=== PATIENT | female | born 2000 | race Caucasian/White ===

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

== ENCOUNTER 2023-06-26 04:17 | Inpatient (IN) | payer MEDICAID, OTHER, SELFPAY ==
[~2023-06-26] VITALS: Ht 172.7 cm; Wt 60.6 kg
[2023-06-26] MEDS ORDERED: NO HOME MEDS (04:47)
[2023-06-26 04:54] LABS: URINE HCG NEGATIVE (NEG)
[2023-06-26 05:07] LABS: URINE AMPHETAMINE SCREEN NEGATIVE (Neg); URINE BARBITUATE SCREEN NEGATIVE (Neg); URINE BENZODIAZEPINES SCREEN NEGATIVE (Neg); URINE CANNABINOID SCREEN NEGATIVE (Neg); URINE COCAINE SCREEN POSITIVE (Neg); URINE METHADONE SCREEN NEGATIVE (Neg); URINE OPIATE SCREEN NEGATIVE (Neg); URINE PHENCYCLIDINE SCREEN NEGATIVE (Neg)
[2023-06-26 05:11] LABS: BASOPHILS % (AUTO) 0.1 % (0-1); EOSINOPHILS % (AUTO) 0.4 % (0-6); HEMATOCRIT 38.7 % (35.0-45.0); HEMOGLOBIN 13.2 g/dl (12.0-16.0); LYMPHOCYTES # (AUTO) 1.9 X10'3 (1.1-4.8); LYMPHOCYTES % (AUTO) 23.1 % (21-51); MEAN CORPUSCULAR HEMOGLOBIN 31.6 PG (27.0-31.0); MEAN CORPUSCULAR HGB CONC 34.2 g/dL (33.0-36.5); MEAN CORPUSCULAR VOLUME 92.4 FL (78-98); MEAN PLATELET VOLUME 7.2 FL (7.4-10.4); MONOCYTES # (AUTO) 0.5 X10'3 (0-0.9); MONOCYTES % (AUTO) 6.1 % (2-12); NEUTROPHILS # (AUTO) 5.8 X10'3 (1.8-7.7); NEUTROPHILS % (AUTO) 70.3 % (42-75); PLATELET COUNT 340 X10'3 (140-440); RED BLOOD COUNT 4.19 X10'6 (4.20-5.60); RED CELL DISTRIBUTION WIDTH 13.7 % (11.5-14.5); WHITE BLOOD COUNT 8.2 X10'3 (4.5-11.0)
[2023-06-26 05:13] LABS: ALANINE AMINOTRANSFERASE 35 U/L (12-78); ALBUMIN/GLOBULIN RATIO 1.1 (1.1-1.5); ALKALINE PHOSPHATASE 90 IU/L (46-116); ANION GAP 7 (8-16); ASPARTATE AMINO TRANSFERASE 18 U/L (10-37); BILIRUBIN,TOTAL 0.5 MG/DL (0.1-1.0); BLOOD UREA NITROGEN 9 MG/DL (7-18); BUN/CREATININE RATIO 11.1 (10.0-20.0); CALCIUM 9.1 MG/DL (8.5-10.1); CHLORIDE 105 MMOL/L (99-107); CREATININE 0.81 MG/DL (0.40-0.90); GLUCOSE 106 MG/DL (70-104); POTASSIUM 3.7 MMOL/L (3.5-5.1); SODIUM 138 MMOL/L (135-145); TOTAL CARBON DIOXIDE 26.4 MMOL/L (24-32); TOTAL PROTEIN 7.5 G/DL (6.4-8.2); eCRCL 107 ML/MIN; eGFR 89 ML/MIN
[2023-06-26 05:15] LABS: BILIRUBIN,URINE NEGATIVE (Neg); CLARITY,URINE SLIGHTLY CLOUDY (Clear); COLOR,URINE STRAW (Yellow); GLUCOSE, URINE NEGATIVE (Neg); KETONES,URINE NEGATIVE (Neg); LEUKOCYTE ESTERASE ,URINE TRACE (Neg); NITRITES, URINE NEGATIVE (Neg); OCCULT BLOOD,URINE NEGATIVE (Neg); PROTEIN,URINE NEGATIVE (Neg); UROBILINOGEN,URINE 0.2 E.U/dL (0.2-1.0)
[2023-06-26 05:19] LABS: UA COLLECTION TYPE CLN CATCH MIDSTREAM
[2023-06-26 05:20] LABS: SQUAMOUS EPITHELIAL CELL,UR FEW /LPF (FEW)
[2023-06-26 05:22] LABS: BACTERIA,URINE 1+ /HPF (Neg); RBC,URINE 0-2 /HPF (0-2); WBC,URINE 0-4 /HPF (0-4)
[2023-06-26 05:23] LABS: ETHANOL 66 MG/DL (<10); THYROID STIMULATING HORMONE 1.92 ulU/ml (0.34-4.50)
[2023-06-26] MEDS ORDERED: mag hydrox/Alum hydrox/simeth 30ml oral suspension PO PRN (17:15)
[2023-06-26] MEDS ORDERED: magnesium hydroxide 30ml (MOM) UD suspension PO PRN (17:15)
[2023-06-26] MEDS ORDERED: loperamide 2mg capsule PO PRN (17:15)
[2023-06-26] MEDS ORDERED: acetaminophen 325mg tablet PO PRN ×2 (17:15)
[2023-06-26] MEDS: NICOTINE POLACRILEX 2 MG LOZENGE BC PRN ×2 (18:49→21:59)
[2023-06-26] MEDS ORDERED: LORazepam 1 MG tablet PO PRN (18:55)
[2023-06-26 19:17] VITALS: RESP 16; O2SAT 100
[2023-06-26 19:19] VITALS: BP 133/65; PULSE 90; RESP 16; TEMP 97.8; O2SAT 100
[2023-06-26] MEDS ORDERED: traZODone 50mg tablet PO SCH (21:00)
[2023-06-27 07:00] VITALS: RESP 14; O2SAT 98
[2023-06-27] MEDS: nicotine 21mg patch - 24 hr TD SCH (07:21)
[2023-06-27 08:00] VITALS: BP 107/61; PULSE 63; RESP 14; TEMP 98.2; O2SAT 98
[2023-06-27 09:54] LABS: CHOL/HDL RATIO 2.8 (0.00-4.99); CHOLESTEROL 171 MG/DL (0-200); HDL CHOLESTEROL 62 MG/DL (35-60); LDL CHOLESTEROL 87 MG/DL (50-100); TRIGLYCERIDES 129 MG/DL (20-135)
[2023-06-27] MEDS ORDERED: QUEtiapine 25mg tablet PO PRN (14:35)
[2023-06-27] MEDS ORDERED: venlafaxine XR 37.5mg cap (Q24H) PO ONE (14:35)
[2023-06-27] MEDS: NICOTINE POLACRILEX 2 MG LOZENGE BC PRN ×2 (16:49→20:59)
[2023-06-27] MEDS: ALPRAZolam 0.5mg tablet PO PRN (17:22)
[2023-06-27 19:00] VITALS: RESP 16; O2SAT 98
[2023-06-27 20:00] VITALS: BP 112/69; PULSE 72; RESP 16; TEMP 97.9; O2SAT 98
[2023-06-27] MEDS: prazosin 1mg capsule PO SCH (20:45)
[2023-06-27] MEDS: QUEtiapine 25mg tablet PO SCH (20:46)
[2023-06-28 07:00] VITALS: RESP 18; O2SAT 98
[2023-06-28] MEDS: venlafaxine XR 75mg capsule (Q24H) PO SCH (07:17)
[2023-06-28] MEDS: nicotine 21mg patch - 24 hr TD SCH (07:18)
[2023-06-28 08:00] VITALS: BP 79/52; PULSE 75; RESP 18; TEMP 97.7; O2SAT 98
[2023-06-28 19:00] VITALS: RESP 18; O2SAT 96
[2023-06-28] MEDS: NICOTINE POLACRILEX 2 MG LOZENGE BC PRN (19:06)
[2023-06-28 20:00] VITALS: BP 137/79; PULSE 93; RESP 18; TEMP 97.7; O2SAT 96
[2023-06-28] MEDS: QUEtiapine 25mg tablet PO SCH (20:32)
[2023-06-28] MEDS: prazosin 1mg capsule PO SCH (20:32)
[2023-06-28] MEDS: ALPRAZolam 0.5mg tablet PO PRN (20:33)
[2023-06-29 07:00] VITALS: RESP 18; O2SAT 97
[2023-06-29 08:00] VITALS: BP 110/57; PULSE 74; RESP 18; TEMP 97.9; O2SAT 97
[2023-06-29] MEDS: nicotine 21mg patch - 24 hr TD SCH (08:26)
[2023-06-29] MEDS: venlafaxine XR 75mg capsule (Q24H) PO SCH (08:26)
[2023-06-29] MEDS: ALPRAZolam 0.5mg tablet PO PRN (14:02)
[2023-06-29] MEDS: NICOTINE POLACRILEX 2 MG LOZENGE BC PRN ×2 (14:43→20:27)
[2023-06-29 19:30] VITALS: BP 125/78; PULSE 97; RESP 16; TEMP 98.9; O2SAT 99
[2023-06-29] MEDS: prazosin 1mg capsule PO SCH (20:27)
[2023-06-29] MEDS: QUEtiapine 25mg tablet PO SCH (20:27)
[2023-06-30 07:00] VITALS: RESP 16; O2SAT 95
[2023-06-30 08:00] VITALS: BP 109/69; PULSE 74; RESP 16; TEMP 98.4; O2SAT 98
[2023-06-30] MEDS: venlafaxine XR 37.5mg cap (Q24H) PO SCH (09:07)
[2023-06-30] MEDS: nicotine 21mg patch - 24 hr TD SCH (09:07)
[2023-06-30] MEDS: venlafaxine XR 75mg capsule (Q24H) PO SCH (09:07)
[2023-06-30] MEDS: NICOTINE POLACRILEX 2 MG LOZENGE BC PRN ×3 (12:34→19:05)
[2023-06-30] MEDS: ALPRAZolam 0.5mg tablet PO PRN (12:34)
[2023-06-30 19:30] VITALS: BP 123/53; PULSE 96; RESP 14; TEMP 98.3; O2SAT 98
[2023-06-30] MEDS: prazosin 1mg capsule PO SCH (20:19)
[2023-06-30] MEDS: QUEtiapine 25mg tablet PO SCH (20:27)
[2023-07-01 07:00] VITALS: RESP 16; O2SAT 95
[2023-07-01 08:00] VITALS: BP 97/62; PULSE 67; RESP 16; TEMP 98.3; O2SAT 98
[2023-07-01] MEDS: venlafaxine XR 37.5mg cap (Q24H) PO SCH (08:14)
[2023-07-01] MEDS: venlafaxine XR 75mg capsule (Q24H) PO SCH (08:14)
[2023-07-01] MEDS: nicotine 21mg patch - 24 hr TD SCH (08:14)
[2023-07-01] MEDS: NICOTINE POLACRILEX 2 MG LOZENGE BC PRN ×3 (11:06→20:27)
[2023-07-01] MEDS ORDERED: venlafaxine XR 37.5mg cap (Q24H) PO ONE (13:00)
[2023-07-01] MEDS ORDERED: naltrexone 50mg tablet PO SCH (17:30)
[2023-07-01 19:00] VITALS: BP 110/68; PULSE 84; RESP 17; TEMP 98.4; O2SAT 100
[2023-07-01] MEDS: QUEtiapine 25mg tablet PO SCH (20:21)
[2023-07-01] MEDS: prazosin 1mg capsule PO SCH (20:21)
[2023-07-02 07:00] VITALS: RESP 16; O2SAT 100
[2023-07-02 08:00] VITALS: BP 115/59; PULSE 72; RESP 16; TEMP 97.7; O2SAT 100
[2023-07-02] MEDS ORDERED: venlafaxine XR 75mg capsule (Q24H) PO SCH (08:00)
[2023-07-02] MEDS: nicotine 21mg patch - 24 hr TD SCH (08:11)
[2023-07-02] MEDS: NICOTINE POLACRILEX 2 MG LOZENGE BC PRN ×2 (09:31→13:06)
[2023-07-02] MEDS ORDERED: QUET25TA36 PO (13:49)
[2023-07-02] MEDS ORDERED: VENL150T3 PO (13:49)
[2023-07-02] MEDS ORDERED: NICO-687 TD (13:49)
[2023-07-02] MEDS ORDERED: NALT50TA PO (13:49)
[2023-07-02] MEDS ORDERED: PRAZ1CAP5 PO (13:49)
== END 2023-07-02 15:17 | disposition home or self-care (01) | DRG 751 ==
LOC: ER 04:17 → ED HOLD 12:25 → ADULT MH 16:23
PROVIDERS: ADMIT Psychiatry & Neurology Psychiatry; ATTEND Psychiatry & Neurology Psychiatry
PROC: GZHZZZZ Group Psychotherapy (ICD-10-PCS; principal; 2023-06-26)
PROC: GZ51ZZZ Individual Psychotherapy, Behavioral (ICD-10-PCS; 2023-06-26)
DX: F33.2 Major depressive disorder, recurrent severe without psychotic features (principal); R45.851 Suicidal ideations; F10.10 Alcohol abuse, uncomplicated; F14.10 Cocaine abuse, uncomplicated; F17.290 Nicotine dependence, other tobacco product, uncomplicated; F42.9 Obsessive-compulsive disorder, unspecified; F43.10 Post-traumatic stress disorder, unspecified; F90.9 Attention-deficit hyperactivity disorder, unspecified type; Z63.72 Alcoholism and drug addiction in family; Z79.899 Other long term (current) drug therapy; Z81.3 Family history of other psychoactive substance abuse and dependence; Z81.8 Family history of other mental and behavioral disorders; Z83.3 Family history of diabetes mellitus
CPT/HCPCS: 36415; 80053; 80061; 80305; 80320; 81001; 81025; 82948; 84443; 85025; 87081; 87811; 99285

== ENCOUNTER 2023-07-12 13:31 | Inpatient (IN) | payer MEDICAID ==
[~2023-07-12] VITALS: Ht 172.7 cm; Wt 58.6 kg
[~2023-07-12 13:31] MED LIST: NALT50TA PO; NICO-687 TD; PRAZ1CAP5 PO; QUET25TA36 PO; VENL150T3 PO
[2023-07-12 14:26] LABS: BASOPHILS % (AUTO) 0.1 % (0-1); EOSINOPHILS % (AUTO) 0.1 % (0-6); HEMATOCRIT 42.1 % (35.0-45.0); HEMOGLOBIN 14.5 g/dl (12.0-16.0); LYMPHOCYTES # (AUTO) 1.4 X10'3 (1.1-4.8); LYMPHOCYTES % (AUTO) 15.1 % (21-51); MEAN CORPUSCULAR HEMOGLOBIN 31.6 PG (27.0-31.0); MEAN CORPUSCULAR HGB CONC 34.4 g/dL (33.0-36.5); MEAN CORPUSCULAR VOLUME 91.8 FL (78-98); MONOCYTES # (AUTO) 0.9 X10'3 (0-0.9); MONOCYTES % (AUTO) 9.9 % (2-12); NEUTROPHILS % (AUTO) 74.8 % (42-75); PLATELET COUNT 345 X10'3 (140-440); RED BLOOD COUNT 4.58 X10'6 (4.20-5.60); RED CELL DISTRIBUTION WIDTH 13.5 % (11.5-14.5); WHITE BLOOD COUNT 9.3 X10'3 (4.5-11.0)
[2023-07-12 14:36] LABS: BILIRUBIN,URINE NEGATIVE (Neg); CLARITY,URINE CLOUDY (Clear); COLOR,URINE YELLOW (Yellow); GLUCOSE, URINE NEGATIVE (Neg); KETONES,URINE NEGATIVE (Neg); LEUKOCYTE ESTERASE ,URINE MODERATE (Neg); NITRITES, URINE POSITIVE (Neg); OCCULT BLOOD,URINE TRACE-INTACT (Neg); PROTEIN,URINE NEGATIVE (Neg); URINE HCG NEGATIVE (NEG); UROBILINOGEN,URINE 0.2 E.U/dL (0.2-1.0)
[2023-07-12 14:41] LABS: ALANINE AMINOTRANSFERASE 31 U/L (12-78); ALBUMIN 4.2 G/DL (3.4-5.0); ALBUMIN/GLOBULIN RATIO 1.1 (1.1-1.5); ALKALINE PHOSPHATASE 125 IU/L (46-116); ANION GAP 7 (8-16); ASPARTATE AMINO TRANSFERASE 26 U/L (10-37); BILIRUBIN,TOTAL 0.9 MG/DL (0.1-1.0); BLOOD UREA NITROGEN 12 MG/DL (7-18); BUN/CREATININE RATIO 11.8 (10.0-20.0); CALCIUM 9.5 MG/DL (8.5-10.1); CHLORIDE 100 MMOL/L (99-107); CREATININE 1.02 MG/DL (0.40-0.90); ETHANOL < 10 MG/DL (<10); GLUCOSE 156 MG/DL (70-104); POTASSIUM 3.8 MMOL/L (3.5-5.1); SODIUM 138 MMOL/L (135-145); TOTAL CARBON DIOXIDE 31.4 MMOL/L (24-32); TOTAL PROTEIN 8.1 G/DL (6.4-8.2); eCRCL 82 ML/MIN; eGFR 68 ML/MIN
[2023-07-12 14:44] LABS: UA COLLECTION TYPE VOIDED
[2023-07-12 14:45] LABS: SQUAMOUS EPITHELIAL CELL,UR MODERATE /LPF (FEW)
[2023-07-12 14:46] LABS: BACTERIA,URINE 4+ /HPF (Neg); WBC,URINE TNTC /HPF (0-4)
[2023-07-12 14:47] LABS: TRANSITIONAL EPI CELLS,URINE MODERATE /HPF
[2023-07-12 14:48] LABS: AMORPHOUS URATES 2+
[2023-07-12 15:01] LABS: URINE AMPHETAMINE SCREEN NEGATIVE (Neg); URINE BARBITUATE SCREEN NEGATIVE (Neg); URINE BENZODIAZEPINES SCREEN NEGATIVE (Neg); URINE CANNABINOID SCREEN NEGATIVE (Neg); URINE COCAINE SCREEN POSITIVE (Neg); URINE METHADONE SCREEN NEGATIVE (Neg); URINE OPIATE SCREEN NEGATIVE (Neg); URINE PHENCYCLIDINE SCREEN NEGATIVE (Neg)
[2023-07-12 15:02] LABS: ACETAMINOPHEN < 2.0 UG/ML (10-30)
[2023-07-12] MEDS: cephalexin 250mg capsule PO SCH (20:30)
[2023-07-12] MEDS ORDERED: NICO-631 TOP (20:54)
[2023-07-12] MEDS ORDERED: NALT50TA PO (20:54)
[2023-07-12] MEDS ORDERED: PRAZ1CAP5 PO (20:54)
[2023-07-12] MEDS ORDERED: QUET50TA24 PO (20:54)
[2023-07-12] MEDS ORDERED: EFF37.5XRC PO (20:54)
[2023-07-12] MEDS ORDERED: prazosin 1mg capsule PO ONE (22:30)
[2023-07-12] MEDS ORDERED: QUEtiapine 25mg tablet PO ONE (22:30)
[2023-07-12] MEDS ORDERED: naltrexone 50mg tablet PO ONE (22:30)
[2023-07-13] MEDS ORDERED: nicotine 14mg patch - 24hr TD SCH (08:00)
[2023-07-13] MEDS: cephalexin 250mg capsule PO SCH ×4 (09:30→21:09)
[2023-07-13] MEDS: venlafaxine XR 75mg capsule (Q24H) PO SCH (09:40)
[2023-07-13] MEDS ORDERED: mag hydrox/Alum hydrox/simeth 30ml oral suspension PO PRN (13:40)
[2023-07-13] MEDS ORDERED: magnesium hydroxide 30ml (MOM) UD suspension PO PRN (13:40)
[2023-07-13] MEDS ORDERED: acetaminophen 325mg tablet PO PRN (13:40)
[2023-07-13] MEDS ORDERED: loperamide 2mg capsule PO PRN (13:40)
[2023-07-13 14:19] VITALS: RESP 16; O2SAT 98
[2023-07-13 19:30] VITALS: RESP 14; O2SAT 94
[2023-07-13 20:00] VITALS: BP 125/83; PULSE 58; RESP 14; TEMP 98.3; O2SAT 94
[2023-07-13] MEDS: naltrexone 50mg tablet PO SCH (21:09)
[2023-07-13] MEDS: prazosin 1mg capsule PO SCH (21:10)
[2023-07-13] MEDS: QUEtiapine 25mg tablet PO SCH (21:11)
[2023-07-14 07:30] VITALS: BP 109/50; PULSE 68; RESP 12; TEMP 98.3; O2SAT 100
[2023-07-14] MEDS: nicotine 21mg patch - 24 hr TD SCH (08:00)
[2023-07-14] MEDS: venlafaxine XR 75mg capsule (Q24H) PO SCH (08:31)
[2023-07-14] MEDS: cephalexin 250mg capsule PO SCH ×3 (08:31→17:04)
[2023-07-14] MEDS ORDERED: NICOTINE POLACRILEX 2 MG LOZENGE BC PRN (14:20)
[2023-07-14] MEDS: NICOTINE POLACRILEX 2 MG LOZENGE BC PRN ×2 (14:48→21:40)
[2023-07-14] MEDS ORDERED: benzocaine/menthol oral lozeng 1 EACH BOX MM PRN (14:55)
[2023-07-14 19:45] VITALS: RESP 20; O2SAT 100
[2023-07-14 20:00] VITALS: BP 128/87; PULSE 98; RESP 20; TEMP 97.7; O2SAT 100
[2023-07-14] MEDS: QUEtiapine 25mg tablet PO SCH (20:45)
[2023-07-14] MEDS: naltrexone 50mg tablet PO SCH (20:45)
[2023-07-14] MEDS: prazosin 1mg capsule PO SCH (20:45)
[2023-07-14 22:02] LABS: BILIRUBIN,URINE NEGATIVE (Neg); CLARITY,URINE CLEAR (Clear); COLOR,URINE YELLOW (Yellow); GLUCOSE, URINE NEGATIVE (Neg); KETONES,URINE NEGATIVE (Neg); LEUKOCYTE ESTERASE ,URINE NEGATIVE (Neg); NITRITES, URINE NEGATIVE (Neg); OCCULT BLOOD,URINE NEGATIVE (Neg); PROTEIN,URINE NEGATIVE (Neg); UROBILINOGEN,URINE 0.2 E.U/dL (0.2-1.0)
[2023-07-14 22:09] LABS: UA COLLECTION TYPE CLN CATCH MIDSTREAM
[2023-07-14] MEDS: HALLS - SOOTHE MENTHOL 1.8 MG cough drop LOZENGE MM PRN (22:31)
[2023-07-15 07:00] VITALS: RESP 16; O2SAT 96
[2023-07-15 08:00] VITALS: BP 98/52; PULSE 54; RESP 16; TEMP 97.9; O2SAT 96
[2023-07-15] MEDS: nicotine 21mg patch - 24 hr TD SCH (08:00)
[2023-07-15] MEDS: venlafaxine XR 75mg capsule (Q24H) PO SCH (08:29)
[2023-07-15 14:19] LABS: HBSAG SCREEN Negative (Negative); HEP B CORE AB, IGM Negative (Negative); HEP B CORE AB, TOT Negative (Negative)
[2023-07-15 19:56] VITALS: BP 120/81; PULSE 97; RESP 16; TEMP 98.6; O2SAT 95
[2023-07-15] MEDS: prazosin 1mg capsule PO SCH (20:53)
[2023-07-15] MEDS: naltrexone 50mg tablet PO SCH (20:53)
[2023-07-15] MEDS: QUEtiapine 25mg tablet PO SCH (20:55)
[2023-07-16 07:00] VITALS: RESP 16; O2SAT 97
[2023-07-16 08:00] VITALS: BP 95/54; PULSE 98; RESP 16; TEMP 97.8; O2SAT 97
[2023-07-16] MEDS: nicotine 21mg patch - 24 hr TD SCH (08:00)
[2023-07-16] MEDS: venlafaxine XR 75mg capsule (Q24H) PO SCH (08:29)
[2023-07-16] MEDS: HALLS - SOOTHE MENTHOL 1.8 MG cough drop LOZENGE MM PRN ×2 (13:47→20:22)
[2023-07-16] MEDS: acetaminophen 325mg tablet PO PRN (13:47)
[2023-07-16 19:00] VITALS: RESP 16; O2SAT 98
[2023-07-16 19:49] VITALS: BP 126/80; PULSE 118; RESP 16; TEMP 98.2; O2SAT 98
[2023-07-16] MEDS: pseudoephedrine 30mg tablet PO SCH (20:21)
[2023-07-16] MEDS: QUEtiapine 25mg tablet PO SCH (20:21)
[2023-07-16] MEDS: prazosin 1mg capsule PO SCH (20:21)
[2023-07-16] MEDS: naltrexone 50mg tablet PO SCH (20:22)
[2023-07-17] MEDS: pseudoephedrine 30mg tablet PO SCH ×4 (02:00→20:50)
[2023-07-17] MEDS: venlafaxine XR 75mg capsule (Q24H) PO SCH (07:07)
[2023-07-17] MEDS: cetirizine 10mg tablet PO SCH (07:07)
[2023-07-17] MEDS: acetaminophen 325mg tablet PO PRN ×2 (07:12→13:17)
[2023-07-17] MEDS: nicotine 21mg patch - 24 hr TD SCH (07:12)
[2023-07-17 08:00] VITALS: BP 111/73; PULSE 126; RESP 12; TEMP 98.8; O2SAT 97
[2023-07-17 19:00] VITALS: BP 116/67; PULSE 125; RESP 20; TEMP 98; O2SAT 100
[2023-07-17] MEDS: naltrexone 50mg tablet PO SCH (20:49)
[2023-07-17] MEDS: prazosin 1mg capsule PO SCH (20:49)
[2023-07-17] MEDS: QUEtiapine 25mg tablet PO SCH (20:50)
[2023-07-17] MEDS: HALLS - SOOTHE MENTHOL 1.8 MG cough drop LOZENGE MM PRN (20:56)
[2023-07-18] MEDS: pseudoephedrine 30mg tablet PO SCH ×4 (02:00→20:51)
[2023-07-18 08:00] VITALS: BP 110/66; PULSE 82; RESP 12; TEMP 98.5; O2SAT 97; O2SAT 98
[2023-07-18] MEDS: nicotine 21mg patch - 24 hr TD SCH (08:00)
[2023-07-18] MEDS: cetirizine 10mg tablet PO SCH (08:54)
[2023-07-18] MEDS: venlafaxine XR 75mg capsule (Q24H) PO SCH (08:54)
[2023-07-18] MEDS: acetaminophen 325mg tablet PO PRN ×2 (09:03→13:06)
[2023-07-18] MEDS: hydrOXYzine 25 MG tablet PO PRN (13:04)
[2023-07-18 19:00] VITALS: RESP 18; O2SAT 99
[2023-07-18 20:00] VITALS: BP 116/59; PULSE 105; RESP 18; TEMP 98.7; O2SAT 99
[2023-07-18] MEDS: prazosin 1mg capsule PO SCH (20:51)
[2023-07-18] MEDS: docusate sod 100mg capsule PO SCH (20:51)
[2023-07-18] MEDS: QUEtiapine 25mg tablet PO SCH (20:51)
[2023-07-18] MEDS: naltrexone 50mg tablet PO SCH (20:52)
[2023-07-18] MEDS: HALLS - SOOTHE MENTHOL 1.8 MG cough drop LOZENGE MM PRN (22:35)
[2023-07-19] MEDS: pseudoephedrine 30mg tablet PO SCH ×4 (02:50→20:32)
[2023-07-19 07:00] VITALS: RESP 14; O2SAT 98
[2023-07-19 08:00] VITALS: BP 106/63; PULSE 90; RESP 14; TEMP 97.8; O2SAT 98
[2023-07-19] MEDS: nicotine 21mg patch - 24 hr TD SCH (08:00)
[2023-07-19] MEDS: docusate sod 100mg capsule PO SCH ×2 (08:21→20:32)
[2023-07-19] MEDS: cetirizine 10mg tablet PO SCH (08:21)
[2023-07-19] MEDS: venlafaxine XR 75mg capsule (Q24H) PO SCH (08:21)
[2023-07-19] MEDS: acetaminophen 325mg tablet PO PRN ×2 (08:33→15:14)
[2023-07-19] MEDS: levoFLOXACIN 750MG TABLET PO SCH (12:07)
[2023-07-19 19:00] VITALS: RESP 14; O2SAT 96
[2023-07-19 19:30] VITALS: BP 99/71; PULSE 112; RESP 14; TEMP 97.5; O2SAT 96
[2023-07-19] MEDS: naltrexone 50mg tablet PO SCH (20:33)
[2023-07-19] MEDS: QUEtiapine 25mg tablet PO SCH (20:33)
[2023-07-19] MEDS: HALLS - SOOTHE MENTHOL 1.8 MG cough drop LOZENGE MM PRN (20:40)
[2023-07-19 20:45] VITALS: BP 117/75
[2023-07-19] MEDS: prazosin 1mg capsule PO SCH (20:47)
[2023-07-20] MEDS: pseudoephedrine 30mg tablet PO SCH ×4 (02:37→20:53)
[2023-07-20 07:00] VITALS: RESP 14; O2SAT 97
[2023-07-20] MEDS: venlafaxine XR 75mg capsule (Q24H) PO SCH (07:48)
[2023-07-20] MEDS: cetirizine 10mg tablet PO SCH (07:48)
[2023-07-20] MEDS: docusate sod 100mg capsule PO SCH ×2 (07:48→20:53)
[2023-07-20] MEDS: nicotine 21mg patch - 24 hr TD SCH (07:53)
[2023-07-20 08:00] VITALS: BP 105/61; PULSE 91; RESP 14; TEMP 98.9; O2SAT 97
[2023-07-20] MEDS: NICOTINE POLACRILEX 2 MG LOZENGE BC PRN (09:36)
[2023-07-20] MEDS: levoFLOXACIN 750MG TABLET PO SCH (10:26)
[2023-07-20] MEDS: JUVEN Smoothie Arginine/Glut./Ca2+Bmb (Juven 19.3pkt) 240ml cup PO SCH ×3 (13:00→21:49)
[2023-07-20 19:00] VITALS: RESP 16; O2SAT 98
[2023-07-20 20:00] VITALS: BP 122/77; PULSE 104; RESP 16; TEMP 97.8; O2SAT 98
[2023-07-20] MEDS: QUEtiapine 25mg tablet PO SCH (20:53)
[2023-07-20] MEDS: naltrexone 50mg tablet PO SCH (20:53)
[2023-07-20] MEDS: prazosin 1mg capsule PO SCH (20:53)
[2023-07-21] MEDS: pseudoephedrine 30mg tablet PO SCH ×4 (02:51→20:41)
[2023-07-21 07:00] VITALS: RESP 16; O2SAT 99
[2023-07-21] MEDS: docusate sod 100mg capsule PO SCH ×2 (07:56→20:41)
[2023-07-21] MEDS: venlafaxine XR 75mg capsule (Q24H) PO SCH (07:56)
[2023-07-21] MEDS: cetirizine 10mg tablet PO SCH (07:56)
[2023-07-21 08:00] VITALS: BP 108/60; PULSE 80; RESP 16; TEMP 97.3; O2SAT 99
[2023-07-21] MEDS: JUVEN Smoothie Arginine/Glut./Ca2+Bmb (Juven 19.3pkt) 240ml cup PO SCH ×3 (08:10→18:57)
[2023-07-21] MEDS: levoFLOXACIN 750MG TABLET PO SCH (10:17)
[2023-07-21 19:00] VITALS: RESP 18; O2SAT 98
[2023-07-21 19:12] VITALS: BP 133/84; PULSE 106; RESP 18; TEMP 97.3; O2SAT 98
[2023-07-21] MEDS: QUEtiapine 25mg tablet PO SCH (20:41)
[2023-07-21] MEDS: prazosin 1mg capsule PO SCH (20:41)
[2023-07-21] MEDS: naltrexone 50mg tablet PO SCH (20:41)
[2023-07-21] MEDS: NICOTINE POLACRILEX 2 MG LOZENGE BC PRN (20:45)
[2023-07-22] MEDS: pseudoephedrine 30mg tablet PO SCH ×4 (02:40→20:11)
[2023-07-22 07:00] VITALS: RESP 12; O2SAT 97
[2023-07-22 08:00] VITALS: BP 109/56; PULSE 90; RESP 12; TEMP 97.9; O2SAT 97
[2023-07-22] MEDS: JUVEN Smoothie Arginine/Glut./Ca2+Bmb (Juven 19.3pkt) 240ml cup PO SCH ×3 (08:00→18:02)
[2023-07-22] MEDS: cetirizine 10mg tablet PO SCH (08:59)
[2023-07-22] MEDS: docusate sod 100mg capsule PO SCH ×2 (08:59→20:11)
[2023-07-22] MEDS: venlafaxine XR 75mg capsule (Q24H) PO SCH (08:59)
[2023-07-22] MEDS: levoFLOXACIN 750MG TABLET PO SCH (11:35)
[2023-07-22 19:45] VITALS: BP 132/77; PULSE 10; RESP 16; TEMP 98.3; O2SAT 99
[2023-07-22] MEDS: NICOTINE POLACRILEX 2 MG LOZENGE BC PRN (20:11)
[2023-07-22] MEDS: prazosin 1mg capsule PO SCH (20:11)
[2023-07-22] MEDS: naltrexone 50mg tablet PO SCH (20:11)
[2023-07-22] MEDS: QUEtiapine 25mg tablet PO SCH (20:11)
[2023-07-22] MEDS: hydrOXYzine 25 MG tablet PO PRN (20:14)
[2023-07-23] MEDS: pseudoephedrine 30mg tablet PO SCH ×3 (01:47→14:52)
[2023-07-23 07:00] VITALS: RESP 12; O2SAT 98
[2023-07-23 08:00] VITALS: BP 113/82; PULSE 88; RESP 12; TEMP 97.6; O2SAT 98
[2023-07-23] MEDS: JUVEN Smoothie Arginine/Glut./Ca2+Bmb (Juven 19.3pkt) 240ml cup PO SCH ×2 (08:00→13:16)
[2023-07-23] MEDS: cetirizine 10mg tablet PO SCH (08:46)
[2023-07-23] MEDS: docusate sod 100mg capsule PO SCH (08:46)
[2023-07-23] MEDS: venlafaxine XR 75mg capsule (Q24H) PO SCH (08:46)
[2023-07-23 09:34] VITALS: BP 113/82; PULSE 88; RESP 12; TEMP 97.6; O2SAT 98
[2023-07-23] MEDS: levoFLOXACIN 750MG TABLET PO SCH (11:47)
[2023-07-23] MEDS ORDERED: VENL75TA90 PO (12:05)
[2023-07-23] MEDS ORDERED: NALT50TA PO (12:05)
[2023-07-23] MEDS ORDERED: LEVO750T68 PO (12:05)
== END 2023-07-23 16:35 | disposition home or self-care (01) | DRG 751 ==
LOC: ER 13:32 → ED HOLD 07-13 11:15 → ADULT MH 07-13 13:27
PROVIDERS: ADMIT Psychiatry & Neurology Psychiatry; ATTEND Psychiatry & Neurology Psychiatry
PROC: GZHZZZZ Group Psychotherapy (ICD-10-PCS; principal; 2023-07-14)
PROC: GZ56ZZZ Individual Psychotherapy, Supportive (ICD-10-PCS; 2023-07-20)
DX: F33.2 Major depressive disorder, recurrent severe without psychotic features (principal); R45.851 Suicidal ideations; F10.20 Alcohol dependence, uncomplicated; F14.20 Cocaine dependence, uncomplicated; F42.9 Obsessive-compulsive disorder, unspecified; N39.0 Urinary tract infection, site not specified; F43.10 Post-traumatic stress disorder, unspecified; E16.2 Hypoglycemia, unspecified; F41.9 Anxiety disorder, unspecified; F90.9 Attention-deficit hyperactivity disorder, unspecified type; J06.9 Acute upper respiratory infection, unspecified; Z20.822 Contact with and (suspected) exposure to COVID-19; Z79.899 Other long term (current) drug therapy; Z81.8 Family history of other mental and behavioral disorders
CPT/HCPCS: 36415; 80053; 80305; 80320; 80329; 81001; 81003; 81025; 82948; 83036; 85025; 86704; 86705; 87081; 87088; 87340; 87811; 99285; Q0177

== ENCOUNTER → 2024-02-22 | Outpatient (CLI) | payer MEDICAID ==
[2024-02-22] VITALS (22 sets, daily range): BP systolic 60–155; BP diastolic 27–86; PULSE 82–134
[~2024-02-22] MED LIST changes: +LEVO750T68 PO; -NALT50TA PO; +NALT50TA5 PO; -NICO-687 TD; -QUET25TA36 PO; +QUET50TA24 PO; -VENL150T3 PO; +VENL75TA90 PO
== END | disposition home or self-care (01) ==
LOC: CARD DIAG 07:59
PROVIDERS: ATTEND Physician Assistant
DX: R55 Syncope and collapse (principal)
CPT/HCPCS: 93660

== ENCOUNTER 2024-09-20 07:44 | Emergency (ER) | payer MEDICAID ==
[~2024-09-20] VITALS: Ht 172.7 cm; Wt 73.3 kg
[2024-09-20 07:48] VITALS: TEMP 97.7
[2024-09-20 08:26] LABS: STREP A SCREEN NEGATIVE (Neg)
[2024-09-20 09:58] LABS: BASOPHILS % (AUTO) 0 % (0-1); EOSINOPHILS % (AUTO) 0 % (0-6); HEMATOCRIT 40.3 % (35.0-45.0); HEMOGLOBIN 13.7 g/dl (12.0-16.0); LYMPHOCYTES # (AUTO) 1.2 X10'3 (1.1-4.8); LYMPHOCYTES % (AUTO) 12.5 % (21-51); MEAN CORPUSCULAR HEMOGLOBIN 30.3 PG (27.0-31.0); MEAN CORPUSCULAR HGB CONC 33.9 g/dL (33.0-36.5); MEAN CORPUSCULAR VOLUME 89.3 FL (78-98); MEAN PLATELET VOLUME 7.4 FL (7.4-10.4); MONOCYTES # (AUTO) 0.6 X10'3 (0-0.9); MONOCYTES % (AUTO) 6.2 % (2-12); NEUTROPHILS # (AUTO) 8.1 X10'3 (1.8-7.7); NEUTROPHILS % (AUTO) 81.3 % (42-75); PLATELET COUNT 189 X10'3 (140-440); RED BLOOD COUNT 4.51 X10'6 (4.20-5.60); RED CELL DISTRIBUTION WIDTH 12.8 % (11.5-14.5)
[2024-09-20] MEDS: ondansetron/PF 4mg/2ml inj IV ONE (09:58)
[2024-09-20] MEDS: ringers solution, lactated 500ml IV solution IV ONE (09:59)
[2024-09-20] MEDS: dexamethasone sod phosphate 10mg/ml inj PO STA (09:59)
[2024-09-20 10:04] LABS: ALBUMIN 4.1 G/DL (3.4-5.0); ANION GAP 9 (8-16); BLOOD UREA NITROGEN 8 MG/DL (7-18); BUN/CREATININE RATIO 11.4 (10.0-20.0); CALCIUM 8.4 MG/DL (8.5-10.1); CHLORIDE 102 MMOL/L (99-107); GLUCOSE 106 MG/DL (70-104); LIPASE 59 U/L (16-77); MAGNESIUM 1.9 MG/DL (1.5-2.4); POTASSIUM 4.2 MMOL/L (3.5-5.1); SODIUM 137 MMOL/L (135-145); TOTAL CARBON DIOXIDE 26.3 MMOL/L (24-32); eCRCL 126 ML/MIN; eGFR > 90 ML/MIN
[2024-09-20] MEDS: diphenhydrAMINE 25 MG/10 ML UD oral solution PO ONE (10:15)
[2024-09-20] MEDS ORDERED: ONDA-243 PO (10:56)
[2024-09-20 11:52] LABS: BILIRUBIN,URINE NEGATIVE (Neg); CLARITY,URINE CLEAR (Clear); COLOR,URINE YELLOW (Yellow); GLUCOSE, URINE NEGATIVE (Neg); KETONES,URINE NEGATIVE (Neg); LEUKOCYTE ESTERASE ,URINE NEGATIVE (Neg); NITRITES, URINE NEGATIVE (Neg); OCCULT BLOOD,URINE TRACE-INTACT (Neg); PROTEIN,URINE NEGATIVE (Neg); UA COLLECTION TYPE CLN CATCH MIDSTREAM; UROBILINOGEN,URINE 0.2 E.U/dL (0.2-1.0)
[2024-09-20] MEDS: normal saline 1000ml 1,000 ML IVB ONE (12:06)
[2024-09-20 12:07] LABS: WBC,URINE 0-4 /HPF (0-4)
[2024-09-20] MEDS: mag hydrox/Alum hydrox/simeth 30ml oral suspension PO ONE (12:07)
[2024-09-20] MEDS: LIDOcaine 2% Viscous 15ml cup MM PRN (12:07)
[2024-09-20 12:08] LABS: BACTERIA,URINE NONE SEEN /HPF (Neg); MUCUS STRANDS NONE SEEN /LPF (Neg); RBC,URINE NONE SEEN /HPF (0-2); SQUAMOUS EPITHELIAL CELL,UR FEW /LPF (FEW)
[2024-09-20 12:30] VITALS: BP 109/72; PULSE 105; RESP 16; O2SAT 100
== END 2024-09-20 12:33 | disposition home or self-care (01) ==
LOC: ER 07:45
DX: J02.8 Acute pharyngitis due to other specified organisms (principal); B97.89 Other viral agents as the cause of diseases classified elsewhere; E86.0 Dehydration; F14.90 Cocaine use, unspecified, uncomplicated; Z79.899 Other long term (current) drug therapy
CPT/HCPCS: 36415; 80048; 81001; 83690; 83735; 85025; 87081; 87880; 96361; 96374; 99283; J1100; J2405; J7030; J7120; Q0163